=== PATIENT | female | born 1980 | race African-American/Black ===

== ENCOUNTER 2017-12-02 00:22 | Inpatient (IN) ==
[2017-12-02 01:33] LABS: Basophils # 0.1 10*3/uL (0.0-0.2); Basophils % 0.4 % (0.0-0.8); Eosinophils % 0.2 % (0.00-10.9); Hematocrit 40.3 VOL% (35.7-47.0); Hemoglobin 13.5 GM/DL (12.0-16.0); Immature Granulocytes % 0.5 %; Immature Granulocytes Absolute 0.09 #; Lymphocytes # 2.7 10*3/uL (1.4-4.0); Lymphocytes % 14.2 % (21.3-54.2); Mean Corpuscular HGB Conc 33.5 GM/DL (32-36); Mean Corpuscular Hemoglobin 30 PG (27-34); Mean Corpuscular Volume 89.4 FL (87-102); Mean Platelet Volume 10.1 FL (9.6-12.0); Monocytes # 0.7 10*3/uL (0.11-0.8); Monocytes % 3.8 % (1.7-12.7); Neutrophils # 15.2 10*3/uL (1.4-7.4); Neutrophils % 80.9 % (38.7-73.9); Platelet Count 332 T/CUMM (130-400); Red Blood Count 4.51 MC/CUMM (3.8-5.5); Red Cell Distribution Width 13.6 % (9.3-17.3); White Blood Count 18.8 T/CUMM (4-12)
[2017-12-02 01:55] LABS: Alanine Aminotransferase 17 U/L (13-56); Albumin 3.1 G/DL (3.4-5.0); Alkaline Phosphatase 123 U/L (45-117); Amylase 59 U/L (25-115); Aspartate Amino Transferase 11 U/L (0-37); Bilirubin,Total < 0.39 MG/DL (0.2-1.0); Blood Urea Nitrogen 9 MG/DL (7-18); Calcium 8.9 MG/DL (8.5-10.1); Glucose 259 MG/DL (74-106); Osmolality,Calculated 282.7 MOS/KG (273-304); Sodium 138 MMOL/L (136-145); Total Protein 6.9 G/DL (6.4-8.3)
[2017-12-02 02:12] LABS: Apearance,Urine CLEAR (Clear); Bilirubin,Urine Negative (Negative); Blood, Urine Negative (Negative); Glucose,Urine (UA) >=500 mg/dL (Negative); Ketones,Urine Negative (Negative); Nitrite,Urine Negative (Negative); Protein,Urine 100 MG/DL; Squamous Epithelial Cell,Urine Occasional /HPF (0-10); Urine Color Yellow (Yellow); Urine Specific Gravity 1.025 (1.001-1.035); Urine Urobilinogen < 2.0 EU/DL (0.2-1.0); WBC,Urine <1 /HPF (0-6)
[2017-12-02] MEDS ORDERED: ACETAMINOPHEN 325 MG TABLET PO PRN (03:09)
[2017-12-02] MEDS ORDERED: ONDANSETRON 4 MG/2 ML VIAL IV PRN (03:09)
[2017-12-02] MEDS ORDERED: MORPHINE 2 MG/1 ML SYRINGE IV PRN (03:09)
[2017-12-02] MEDS: LACTATED RINGERS 1,000 ML IV SCH ×2 (05:59→11:30)
[2017-12-02] MEDS: cefOXitin 2,000 MG in SYRINGE 1 EACH IV SCH ×2 (06:27→11:30)
[2017-12-02] MEDS: PANTOPRAZOLE 40 MG TABLET PO SCH (08:16)
[2017-12-02] MEDS ORDERED: GLUCAGON 1 MG VIAL IM PRN (10:11)
[2017-12-02] MEDS: INSULIN LISPRO 100 UNIT/ML SUBCUT SCH ×3 (11:47→23:58)
[2017-12-02] MEDS ORDERED: PHENOL 1.4% THROAT SPRAY 177 ML BOTTLE PO PRN (11:56)
[2017-12-02] MEDS ORDERED: ESTRADIOL VALERATE IM 100 MG/5 ML VIAL IM SCH (12:00)
[2017-12-02] MEDS: INSULIN REGULAR 100 UNIT/ML SUBCUT SCH (16:56)
[2017-12-02] MEDS: INSULIN NPH 100 UNIT/ML SUBCUT SCH (16:56)
[2017-12-02] MEDS ORDERED: INSULIN GLARGINE 100 UNIT/ML SUBCUT SCH (21:00)
[2017-12-03] MEDS: LACTATED RINGERS 1,000 ML IV SCH ×4 (00:06→12:19)
[2017-12-03] MEDS: INSULIN LISPRO 100 UNIT/ML SUBCUT SCH ×3 (06:45→19:09)
[2017-12-03 07:19] LABS: Basophils # 0.1 10*3/uL (0.0-0.2); Basophils % 0.4 % (0.0-0.8); Eosinophils # 0.2 10*3/uL (0.0-0.87); Eosinophils % 1.6 % (0.00-10.9); Hematocrit 38.8 VOL% (35.7-47.0); Hemoglobin 12.9 GM/DL (12.0-16.0); Immature Granulocytes % 0.4 %; Immature Granulocytes Absolute 0.05 #; Lymphocytes # 4.1 10*3/uL (1.4-4.0); Lymphocytes % 31.6 % (21.3-54.2); Mean Corpuscular HGB Conc 33.2 GM/DL (32-36); Mean Corpuscular Hemoglobin 30 PG (27-34); Mean Corpuscular Volume 89.2 FL (87-102); Mean Platelet Volume 10.2 FL (9.6-12.0); Monocytes # 0.5 10*3/uL (0.11-0.8); Monocytes % 3.9 % (1.7-12.7); Neutrophils # 8.1 10*3/uL (1.4-7.4); Neutrophils % 62.1 % (38.7-73.9); Platelet Count 355 T/CUMM (130-400); Red Blood Count 4.35 MC/CUMM (3.8-5.5); Red Cell Distribution Width 13.6 % (9.3-17.3); White Blood Count 13.1 T/CUMM (4-12)
[2017-12-03] MEDS: PANTOPRAZOLE 40 MG TABLET PO SCH (08:13)
[2017-12-03 08:53] LABS: Albumin 2.6 G/DL (3.4-5.0); Bilirubin,Total 0.5 MG/DL (0.2-1.0); Calcium 8.3 MG/DL (8.5-10.1); Osmolality,Calculated 276.7 MOS/KG (273-304); Potassium 4.1 MMOL/L (3.5-5.1); Total Protein 6.7 G/DL (6.4-8.3)
[2017-12-03] MEDS: INSULIN NPH 100 UNIT/ML SUBCUT SCH ×2 (09:18→16:42)
[2017-12-03] MEDS: INSULIN REGULAR 100 UNIT/ML SUBCUT SCH ×3 (09:19→16:42)
[2017-12-03] MEDS: HYDROmorphone 2 MG/1 ML VIAL IV PRN (09:29)
[2017-12-03] MEDS ORDERED: LISINOPRIL 2.5 MG TABLET PO SCH (10:00)
[2017-12-03] MEDS ORDERED: cefOXitin 2,000 MG in SYRINGE 1 EACH IV ONE (11:47)
[2017-12-03] MEDS ORDERED: PROMETHAZINE 25 MG/1 ML VIAL IM ONE (15:59)
[2017-12-03] MEDS: DEXTROSE 50% 25 GM/50 ML VIAL IV PRN (20:38)
[2017-12-04] MEDS: DEXTROSE 50% 25 GM/50 ML VIAL IV PRN (00:26)
[2017-12-04] MEDS: INSULIN LISPRO 100 UNIT/ML SUBCUT SCH ×4 (00:26→18:19)
[2017-12-04] MEDS: LACTATED RINGERS 1,000 ML IV SCH ×4 (01:56→18:21)
[2017-12-04] MEDS ORDERED: TISSUE ADHESIVE 1 EACH APPLICATOR TOP ONE (06:21)
[2017-12-04 06:43] LABS: Basophils # 0.1 10*3/uL (0.0-0.2); Basophils % 0.4 % (0.0-0.8); Eosinophils # 0.2 10*3/uL (0.0-0.87); Eosinophils % 1.5 % (0.00-10.9); Hematocrit 37.9 VOL% (35.7-47.0); Hemoglobin 13.1 GM/DL (12.0-16.0); Immature Granulocytes % 0.3 %; Immature Granulocytes Absolute 0.04 #; Lymphocytes # 3.5 10*3/uL (1.4-4.0); Lymphocytes % 25.5 % (21.3-54.2); Mean Corpuscular HGB Conc 34.6 GM/DL (32-36); Mean Corpuscular Hemoglobin 30 PG (27-34); Mean Corpuscular Volume 86.3 FL (87-102); Mean Platelet Volume 10.2 FL (9.6-12.0); Monocytes # 0.6 10*3/uL (0.11-0.8); Monocytes % 4.2 % (1.7-12.7); Neutrophils # 9.4 10*3/uL (1.4-7.4); Neutrophils % 68.1 % (38.7-73.9); Platelet Count 385 T/CUMM (130-400); Red Blood Count 4.39 MC/CUMM (3.8-5.5); Red Cell Distribution Width 13.5 % (9.3-17.3); White Blood Count 13.8 T/CUMM (4-12)
[2017-12-04 07:28] LABS: Albumin 2.8 G/DL (3.4-5.0); Bilirubin,Total 1.3 MG/DL (0.2-1.0); Calcium 8.9 MG/DL (8.5-10.1); Osmolality,Calculated 277.7 MOS/KG (273-304); Potassium 3.9 MMOL/L (3.5-5.1); Total Protein 6.4 G/DL (6.4-8.3)
[2017-12-04] MEDS ORDERED: cefOXitin 2,000 MG in SYRINGE 1 EACH IV ONE (08:00)
[2017-12-04] MEDS: INSULIN REGULAR 100 UNIT/ML SUBCUT SCH ×3 (08:06→18:20)
[2017-12-04] MEDS: INSULIN NPH 100 UNIT/ML SUBCUT SCH ×2 (08:06→18:20)
[2017-12-04] MEDS: PANTOPRAZOLE 40 MG TABLET PO SCH (08:07)
[2017-12-04] MEDS ORDERED: PROPOFOL 200 MG/20 ML VIAL IV ONE (11:02)
[2017-12-04] MEDS ORDERED: NEOSTIGMINE 10 MG/10 ML VIAL ONE (11:03)
[2017-12-04] MEDS ORDERED: MIDAZOLAM 2 MG/2 ML VIAL ONE (11:03)
[2017-12-04] MEDS ORDERED: ONDANSETRON 4 MG/2 ML VIAL ONE (11:03)
[2017-12-04] MEDS ORDERED: ROCURONIUM 100 MG/10 ML VIAL IV ONE (11:03)
[2017-12-04] MEDS ORDERED: DEXAMETHASONE 10 MG/1 ML VIAL ONE (11:03)
[2017-12-04] MEDS ORDERED: KETOROLAC 30 MG/1 ML VIAL ONE (11:03)
[2017-12-04] MEDS ORDERED: fentaNYL 100 MCG/2 ML VIAL ONE (11:03)
[2017-12-04] MEDS ORDERED: SEVOFLURANE 1 UNIT/15 MINUTE INH ONE (11:10)
[2017-12-04] MEDS: HYDROmorphone 2 MG/1 ML VIAL IV PRN ×2 (13:49→21:43)
[2017-12-05] MEDS: INSULIN LISPRO 100 UNIT/ML SUBCUT SCH ×3 (00:10→12:19)
[2017-12-05] MEDS: LACTATED RINGERS 1,000 ML IV SCH (00:53)
[2017-12-05 06:11] LABS: Basophils # 0.1 10*3/uL (0.0-0.2); Basophils % 0.4 % (0.0-0.8); Eosinophils % 0.3 % (0.00-10.9); Hematocrit 35.9 VOL% (35.7-47.0); Hemoglobin 12.1 GM/DL (12.0-16.0); Immature Granulocytes % 0.7 %; Immature Granulocytes Absolute 0.09 #; Lymphocytes # 2.7 10*3/uL (1.4-4.0); Lymphocytes % 20.7 % (21.3-54.2); Mean Corpuscular HGB Conc 33.7 GM/DL (32-36); Mean Corpuscular Hemoglobin 30 PG (27-34); Mean Platelet Volume 10.1 FL (9.6-12.0); Monocytes # 0.6 10*3/uL (0.11-0.8); Monocytes % 4.9 % (1.7-12.7); Neutrophils # 9.6 10*3/uL (1.4-7.4); Platelet Count 365 T/CUMM (130-400); Red Blood Count 4.08 MC/CUMM (3.8-5.5); Red Cell Distribution Width 13.2 % (9.3-17.3); White Blood Count 13.1 T/CUMM (4-12)
[2017-12-05 06:37] LABS: Calcium 8.8 MG/DL (8.5-10.1); Potassium 4.1 MMOL/L (3.5-5.1)
[2017-12-05] MEDS: INSULIN NPH 100 UNIT/ML SUBCUT SCH ×2 (08:40→09:47)
[2017-12-05] MEDS: INSULIN REGULAR 100 UNIT/ML SUBCUT SCH ×2 (08:51→12:19)
[2017-12-05] MEDS: PANTOPRAZOLE 40 MG TABLET PO SCH (08:52)
[2017-12-05] MEDS ORDERED: HYDROmorphone 2 MG/1 ML VIAL IV PRN (09:14)
[2017-12-05 12:27] VITALS: BP 145/82
== END 2017-12-05 14:08 | disposition home or self-care (01) | DRG 263 ==
LOC: EDUNIT# → EDBD → N.ED 00:22 → N.EDINP 03:09 → N.3W 04:12 → N.3E 04:14
PROVIDERS: ADMIT Surgery; ATTEND Surgery
PROC: LAPCHOL (2017-12-04 08:50)